=== PATIENT | female | born 1975 | race Caucasian/White ===

== ENCOUNTER → 2022-08-07 | Outpatient (CLI) | payer OTHER | END | disposition home or self-care (01) | LOC: NUCLEAR 07:32 | PROVIDERS: ATTEND Internal Medicine Cardiovascular Disease | DX: G45.1 Carotid artery syndrome (hemispheric) (principal) ==

== ENCOUNTER 2022-08-08 08:32 | Outpatient (CLI) | payer OTHER | END 2022-08-08 08:37 | disposition home or self-care (01) | LOC: NUCLEAR 08:32 | PROVIDERS: ATTEND Internal Medicine Cardiovascular Disease | DX: G45.1 Carotid artery syndrome (hemispheric) (principal) ==